=== PATIENT | female | born 1960 | race Caucasian/White ===

== ENCOUNTER 2022-02-08 11:19 | Outpatient (RCR) | payer BC, SELFPAY | END 2022-03-04 23:59 | disposition home or self-care (01) | LOC: CCIC 11:19 | PROVIDERS: PCP Surgery; Visit Provider Nurse Practitioner Family | DX: C50.911 Malignant neoplasm of unspecified site of right female breast (principal); Z17.0 Estrogen receptor positive status [ER+]; M85.80 Other specified disorders of bone density and structure, unspecified site; Z78.0 Asymptomatic menopausal state | CPT/HCPCS: 99212; 99214 ==

== ENCOUNTER 2022-10-26 10:30 | Outpatient (RCR) | payer BC, SELFPAY ==
--- NOTE | 2022-04-19 12:08 | URNOTE ---
REceived request for prior auth for Zoledronic Acid (J3489). Per Shanice at [facility], this has been approved, for 2 treatments. 04/26/2022-04/26/2023. Auth #[id number]
[2022-05-03 09:08] LABS: Albumin* 4.7 g/dL (3.3-5.0); Chloride* 107 mmol/L (96-114)
[2022-05-03 09:09] LABS: Potassium* 4.4 mmol/L (3.6-5.1); Sodium* 140 mmol/L (135-149)
[2022-05-03 09:11] LABS: Bilirubin Total* 0.5 mg/dL (0.1-1.5); Carbon Dioxide* 25 mmol/L (20-32); Creatinine* 0.7 mg/dL (0.5-1.5); Estimated Glomerular Filt Rate 98 ml/min; Total Protein* 7.5 g/dL (6.0-8.3)
[2022-05-03 09:12] LABS: Alanine Aminotransferase* 21 U/L (4-35); Alkaline Phosphatase* 70 U/L (40-150); Aspartate Amino Transferase* 47 U/L (12-35); Blood Urea Nitrogen* 12 mg/dL (7-30); Calcium* 9.2 mg/dL (8.4-10.6); Glucose* 87 mg/dL (60-115)
[2022-05-03] MEDS: ZOLEDRONIC ACID 4 MG in 0.9 % SODIUM CHLORIDE 100 ml 100 ML 420 MG IVPB (10:04)
[2022-05-03] MEDS: 0.9 % SODIUM CHLORIDE 250 ml IV (10:12)
[2022-05-03] MEDS: SODIUM CHLORIDE 0.9 % (FLUSH) 10 ML SYRINGE IVF (10:12)
--- NOTE | 2022-05-03 10:17 | PC.NURSE ---
Contacted pt's dental clinic and reviewed that dental clearance was obtained on 04/05/2021 prior to starting Zometa. Requested a copy of that documentation which was received and scanned into pt's chart.
[2022-10-26 10:55] LABS: Calcium* 9.5 mg/dL (8.4-10.6); Creatinine* 0.6 mg/dL (0.5-1.5); Estimated Glomerular Filt Rate 102 ml/min
[2022-10-26 11:22] VITALS: BP 117/76; PULSE 62; RESP 16; TEMP 36.3; O2SAT 96
[2022-10-26] MEDS: ZOLEDRONIC ACID 4 MG in 0.9 % SODIUM CHLORIDE 100 ml 100 ML 420 MG IVPB (11:31)
== END 2022-10-30 23:59 | disposition home or self-care (01) ==
LOC: CCIC 10:30
PROVIDERS: PCP Surgery; Referring Provider Surgery; Visit Provider Nurse Practitioner Family
DX: C50.911 Malignant neoplasm of unspecified site of right female breast (principal)
CPT/HCPCS: 36415; 80053; 82310; 82565; 96374; 99212; 99214; J3489; J7050

== ENCOUNTER 2023-05-30 08:14 | Outpatient (RCR) | payer BC, SELFPAY ==
[2023-04-26 10:41] LABS: Creatinine* 0.7 mg/dL (0.5-1.5); Est. Creatinine Clearance* 50.37; Estimated Glomerular Filt Rate 98 ml/min
[2023-04-26 10:42] LABS: Calcium* 9.8 mg/dL (8.4-10.6)
[2023-04-26] MEDS: ZOLEDRONIC ACID 4 MG in 0.9 % SODIUM CHLORIDE 100 ml 100 ML 420 MG IVPB (11:04)
--- NOTE | 2023-06-20 14:12 | ONC.NURNOTE ---
Left message for pt that Megan Collazo PA-C reviewed diagnostic mammo and pt to return in 6 months for physical exam.
== END 2023-08-20 23:59 | disposition home or self-care (01) ==
LOC: CCIC 08:14
PROVIDERS: Internal Medicine Hematology & Oncology; PCP Surgery; Referring Provider Surgery; Visit Provider Physician Assistant
DX: C50.911 Malignant neoplasm of unspecified site of right female breast (principal); Z17.0 Estrogen receptor positive status [ER+]; Z79.811 Long term (current) use of aromatase inhibitors; M85.80 Other specified disorders of bone density and structure, unspecified site; N63.10 Unspecified lump in the right breast, unspecified quadrant; N89.8 Other specified noninflammatory disorders of vagina; R23.2 Flushing
CPT/HCPCS: 36415; 82310; 82565; 96374; 99212; 99214; 99215; J3489

== ENCOUNTER 2023-06-13 09:30 | Outpatient (CLI) | payer BC, SELFPAY ==
--- NOTE | 2023-06-13 09:45 | CRLHL7_ITS ---
For Patients: As a result of the Cures Act, medical imaging exams and procedure reports are released immediately into your electronic medical record. You may view this report before your referring provider. If you have questions, please contact your health care provider. DIAGNOSTIC RIGHT BREAST MAMMOGRAM WITH COMPUTER-AIDED DETECTION AND TOMOSYNTHESIS RIGHT BREAST ULTRASOUND CLINICAL HISTORY: RIGHT breast lump. COMPARISON: 12/14/2020, 12/23/2020. TECHNIQUE: Digital RIGHT mammogram in 2 projections. Computer-aided detection and tomosynthesis were used. Real-time ultrasound imaging of RIGHT breast with imaging documentation. BREAST COMPOSITION: There are scattered areas of fibroglandular density FINDINGS: 3D CC/MLO RIGHT breast mammogram images submitted. Post treatment changes to the RIGHT breast noted with expected scar tissue. No suspicious masses or architectural distortion. Post XRT skin thickening noted. Targeted RIGHT breast ultrasound performed in the area of concern at 1 o`clock 3 cm from the nipple demonstrates normal scar tissue. No fluid collection or mass. IMPRESSION: No suspicious findings. RECOMMENDATIONS: Clinical follow-up and routine screening mammography. BI-RADS Category 2: Benign Results and recommendations discussed with the patient. A lay language report of this examination will be provided to the patient. Dictated by Abebe Mohan MD @ 06/13/2023 12:21:53 PM/margarita MICHEL/Dictated by: Abebe Mohan MD @ 06/13/2023 12:21:00 PM (Electronically Signed)
--- NOTE | 2023-06-13 10:15 | CRLHL7_ITS ---
For Patients: As a result of the Century Cures Act, medical imaging exams and procedure reports are released immediately into your electronic medical record. You may view this report before your referring provider. If you have questions, please contact your health care provider. PLEASE SEE RIGHT BREAST DIAGNOSTIC MAMMOGRAM OF SAME DAY. CRL:margarita MICHEL/Dictated by: Abebe Mohan MD @ 06/13/2023 12:21:00 PM (Electronically Signed)
== END 2023-06-13 09:31 | disposition home or self-care (01) ==
LOC: MAMMO 09:31
PROVIDERS: PCP Surgery; Visit Provider Physician Assistant
DX: N63.10 Unspecified lump in the right breast, unspecified quadrant (principal)
CPT/HCPCS: 76642; 77065; G0279

== ENCOUNTER 2023-09-18 14:41 | Outpatient (CLI) | payer BC, SELFPAY ==
--- NOTE | 2023-09-18 15:00 | XR_ITS ---
Patient: NORY RIOS Facility:?[facility] Patient ID:?[id number] Site Patient [id number]:?[id number]. Site :?[id number] Study:?DEXA-Bone Density -09/18/2023 3:35:40 PM Ordering Physician:LAURIE Final Report: DXA BONE MINERAL DENSITY STUDY Reason for exam: Long-term (current) use of aromatase inhibitors. Current height (in): 64.5. Weight (lb): 159. Menopause age: 53. Ethnicity: White. 1. Have you had a previous hip or vertebral fracture? No. 2. Have you had any fractures during your adult life which did not result from significant trauma (e.g., auto accident)? No. 3. Did either of your parents have a hip fracture? No. 4. Do you smoke? No. 5. Have you ever taken Glucocorticoids? No. 6. Do you have rheumatoid arthritis? No. 7. Do you have secondary osteoporosis? No. 8. Do you drink 3 or more alcoholic drinks per day? No. 9. Are you being treated for osteoporosis? No. 10. Have you ever taken any of the following medications: Actonel, Evista, Fosamax, Miacalcin, Reclast, Boniva, Forteo, HRT (i.e., estrogen/hormone therapy), Protelos, Prolia, Vitamin D, Calcium, other ? please specify. ANSWER: Yes, vitamin D, HRT (i.e. estrogen/hormone therapy), and calcium. 11. Do you have any of the following medical conditions: Anorexia or bulimia, asthma or emphysema, end stage renal disease, hyperparathyroidism, any seizure disorders, cancer, inflammatory bowel diseases, hysterectomy, other ? please specify. ANSWER: Yes, cancer. 12. What was your maximum height (inches)? 64. 13. Do you perform weight bearing exercise regularly? No. 14. Do you regularly consume dairy products? Yes. 15. Do you drink caffeinated beverages? Yes. If female: 16. At what age did your period start? 14. 17. Are you premenopausal? No. 18. How many full-term pregnancies have you had? 1. 19. Have you ever missed your period for more than 6 months in a row (not including or menopause)? No. TECHNIQUE: Bone mineral density study was performed using the [employer]. FINDINGS: The results of the study expressed as bone mineral density (BMD) are as follows: Lumbar spine L1 to L3: BMD: 0.842 g/cm2. T-score: -1.6. Z-score: 0.0 Neck Left: BMD: 0.692 g/cm2. T-score: -1.4. Z-score: 0.0 Right: BMD: 0.686 g/cm2. T-score: -1.5. Z-score: -0.1 Total Left: BMD: 0.849 g/cm2. T-score: -0.8. Z-score: 0.3 Right: BMD: 0.859 g/cm2. T-score: -0.7. Z-score: 0.4 IMPRESSION: Osteopenia. *Comparison exams done prior to 01/2020 were performed on different unit, [employer]. COMPARISON: Compared with scan of 02/01/2021, the bone mineral density has increased by 1.9 percent at the spine and increased by 6.2 percent at the hip. FRAX 10-year Fracture Risk Major Osteoporotic Fracture: 8.3% Hip Fracture: 0.7% Reported Risk Factors: [place] () Neck BMD=0.686, BMI=26.9 Dictated by: Abebe Mohan MD @09/24/2023 8:27:30 AM /Dictated by: Abebe Mohan MD @ 09/24/2023 8:27:00 AM Signed by:?Abebe Mohan MD @09/29/2023 6:25:42 AM (Electronic Signature)
== END 2023-09-18 14:42 | disposition home or self-care (01) ==
LOC: RAD 14:43
PROVIDERS: PCP Surgery; Visit Provider Physician Assistant
DX: Z79.811 Long term (current) use of aromatase inhibitors (principal); M85.88 Other specified disorders of bone density and structure, other site
CPT/HCPCS: 77080

== ENCOUNTER 2024-04-16 09:30 | Outpatient (RCR) | payer BC, SELFPAY ==
--- NOTE | 2023-09-30 15:30 | ONC.NURNOTE ---
Left message with pt stating bone density results reviewed by Megan Collazo PA-C. Per Megan, bone density improved, will discuss further at next visit.
--- NOTE | 2023-10-24 12:52 | URNOTE ---
Per CareloSheri on behalf of [employer], prior auth is not required for Zoledronic Acid/Zometa (J3489). Ref #[id number]
[2023-10-30 13:22] LABS: Creatinine* 0.6 mg/dL (0.5-1.5); Estimated Glomerular Filt Rate 101 ml/min
[2023-10-30 13:23] LABS: Calcium* 9.9 mg/dL (8.4-10.6)
[2023-10-30] MEDS: ZOLEDRONIC ACID 4 MG in 0.9 % SODIUM CHLORIDE 100 ml 100 ML 420 MG IVPB (14:30)
[2024-04-16 09:51] LABS: Calcium* 9.7 mg/dL (8.4-10.6); Creatinine* 0.6 mg/dL (0.5-1.5); Est. Creatinine Clearance* 51.81; Estimated Glomerular Filt Rate 101 ml/min
[2024-04-16] MEDS: ZOLEDRONIC ACID 4 MG in 0.9 % SODIUM CHLORIDE 100 ml 100 ML 400 MG IVPB (11:02)
== END 2024-04-27 23:59 | disposition home or self-care (01) ==
LOC: CCIC 09:30
PROVIDERS: Internal Medicine Hematology & Oncology; PCP Surgery; Referring Provider Surgery; Visit Provider Physician Assistant
DX: C50.911 Malignant neoplasm of unspecified site of right female breast (principal); Z17.0 Estrogen receptor positive status [ER+]; M85.80 Other specified disorders of bone density and structure, unspecified site; Z79.811 Long term (current) use of aromatase inhibitors; Z78.0 Asymptomatic menopausal state
CPT/HCPCS: 36415; 82310; 82565; 96374; 99213; 99214; G0463; J3489

== ENCOUNTER 2024-10-15 09:24 | Outpatient (RCR) | payer BC, SELFPAY ==
[2024-10-15 10:13] LABS: Calcium* 9.4 mg/dL (8.4-10.6); Creatinine* 0.7 mg/dL (0.5-1.5); Estimated Glomerular Filt Rate 97 ml/min
[2024-10-15] MEDS: ZOLEDRONIC ACID 4 MG in 0.9 % SODIUM CHLORIDE 100 ml 100 ML 400 MG IVPB (11:15)
== END 2025-04-13 23:59 | disposition home or self-care (01) ==
LOC: CCIC 09:24
PROVIDERS: PCP Surgery; Referring Provider Surgery; Visit Provider Physician Assistant
DX: C50.911 Malignant neoplasm of unspecified site of right female breast (principal); Z17.0 Estrogen receptor positive status [ER+]; M85.80 Other specified disorders of bone density and structure, unspecified site; Z79.811 Long term (current) use of aromatase inhibitors
CPT/HCPCS: 36415; 82310; 82565; 96374; 99214; G0463; J3489